=== PATIENT | male | born 1980 | race Hispanic/Latino ===

== ENCOUNTER 2020-08-16 12:31 | Emergency (ER) | payer OTHER ==
[2020-08-16 13:17] VITALS: BP 128/83
== END 2020-08-16 16:00 | disposition left against medical advice (07) ==
LOC: ED 12:31
DX: S61.228A Laceration with foreign body of other finger without damage to nail, initial encounter (principal); Z53.21 Procedure and treatment not carried out due to patient leaving prior to being seen by health care provider; X58.XXXA Exposure to other specified factors, initial encounter; Y93.89 Activity, other specified; Y92.89 Other specified places as the place of occurrence of the external cause; Y99.8 Other external cause status